=== PATIENT | male | born 2000 | race African-American/Black ===

== ENCOUNTER 2022-01-16 00:30 | Emergency (ER) | payer OTHER ==
[~2022-01-16] VITALS: Ht 172.7 cm; Wt 75.0 kg
[2022-01-16 00:33] VITALS: BP 125/72
[2022-01-16] MEDS ORDERED: MAGNESIUM/ALUMINUM HYDROXIDE/SIMETHICONE 30ML UDC PO ONE (01:15)
[2022-01-16] MEDS ORDERED: ONDANSETRON 4MG ODT PO ONE (01:15)
[2022-01-16 01:20] LABS: CHLORIDE 104 mEq/L (98-107)
[2022-01-16 01:31] LABS: BASOPHILS % 0.6 % (0.0-2.0); EOSINOPHILS % 2.5 % (0.0-5.0); HEMATOCRIT. 41.9 % (42.0-52.0); HEMOGLOBIN. 13.6 g/dL (14.0-18.0); LYMPHOCYTES % 61.3 % (20.0-50.0); MEAN CORPUSCULAR HEMOGLOBIN 28.1 pg (28.0-32.0); MEAN CORPUSCULAR VOLUME 86.3 fL (80.0-94.0); MEAN PLATELET VOLUME 8.7 fl (7.4-10.4); MONOCYTES % 6.1 % (2.0-8.0); NEUTROPHILS % 29.5 % (40.0-76.0); PLATELET 182 x1000/uL (130-400); RED BLOOD CELL COUNT 4.85 mill/uL (4.7-6.1)
[2022-01-16] MEDS ORDERED: SODIUM CHLORIDE 0.9% 1,000 ML IV ONE (01:45)
== END 2022-01-16 04:26 | disposition home or self-care (01) ==
LOC: ER 00:30
DX: N17.9 Acute kidney failure, unspecified (principal); R07.89 Other chest pain; J45.909 Unspecified asthma, uncomplicated
CPT/HCPCS: 36415; 71045; 80053; 83880; 84484; 85025; 93005; 96360; 99285; Q0162; 94640